=== PATIENT | female | born 1980 | race Asian ===

== ENCOUNTER 2023-02-13 08:50 | Outpatient (CLI) | payer BC ==
--- NOTE | 2023-02-14 12:13 | Mammography Report ---
BILATERAL FIRST EVER DIGITAL SCREENING MAMMOGRAM 3D/2D WITH EXAGGERATED CC LATEROMEDIAL OBLIQUE: 01/26 CLINICAL: Baseline exam. Routine screening. No prior exams were available for comparison. Both breasts are heterogeneously dense, which may obscure small masses (category c / 51-75% glandular tissue). No significant masses, calcifications, or other findings are seen in either breast. IMPRESSION: NEGATIVE There is no mammographic evidence of malignancy. A 1 year screening mammogram is recommended. Based on the Tyrer Cuzick model (a risk assessment model) the patients lifetime risk is 10.7% and he r 10 year risk is 1.5%. According to the ACR, ACS, and NCCN guidelines, an annual breast MRI exam shilpi ng with mammogram is recommended if the patients lifetime risk is 20% or greater. This exam was interpreted at Station ID: [id number]. NOTE: For mammograms, a report in lay terms will be sent to the patient. Approximately 15% of breast malignancies will not be visualized mammographically. In the management of a palpable breast mass, a negative mammogram must not discourage biopsy of a clinically suspicious lesion. Electronically Signed By: Matias ewing/massimo:02/13/2023 19:46:33 letter sent: No_Letter ACR BI-RADS Category 1: Negative 3341F PARENCHYMAL PATTERN: (D) - The breast(s) demonstrate(s) heterogeneously dense fibroglandular juan manuel lizama. BI-RADS CATEGORY: (1) - 1 Mammogram [id number] 1 year screening LATERALITY: (B)
== END 2023-02-13 08:51 | disposition home or self-care (01) ==
LOC: DI.S 08:50
DX: Z12.31 Encounter for screening mammogram for malignant neoplasm of breast (principal); R92.333 Mammographic heterogeneous density, bilateral breasts

== ENCOUNTER 2023-02-13 16:43 | Outpatient (CLI) | payer BC ==
--- NOTE | 2023-02-14 08:26 | Ultrasound Report ---
PROCEDURE: Pelvic w/Transvaginal INDICATIONS: MENORRHAGIA TECHNIQUE: Real-time scanning was performed of the pelvic organs, with image documentation. Additional endovagi nal scanning was necessary due to incomplete visualization of the adnexal and endometrial structures by transabdominal scanning. COMPARISON: None. FINDINGS: Uterus: Uterus is anteverted and normal in size at 10.1 x 5.1 x 6.1 cm. The myometrium is heterogen eous. The endometrium measures 8.9 mm in combined thickness. There is a midline anterior submucosal fibroid which measures 1.5 x 1.5 x 1.9 cm. Ovaries: The right ovary measures 2.2 x 1.4 x 1.9 cm, with a calculated ovarian volume of 3.1 cc. T he left ovary measures 3.1 x 2.6 x 3.0 cm, with a calculated ovarian volume of 12.3 cc. The ovaries have a normal sonographic appearance. Less than 12 follicles can be seen in each ovary. No adnexal masses are seen. No cystic lesions measuring greater than 3 cm. Other: No pathologic free abdominal or pelvic fluid. IMPRESSION: 1. Small submucosal fibroid. Otherwise unremarkable pelvic ultrasound. Reviewed by: Marga Stover MD on 02/14/2023 8:25 AM PST Approved by: Marga Stover MD on 02/14/2023 8:25 AM PST Station ID: [id number]
== END 2023-02-13 16:44 | disposition home or self-care (01) ==
LOC: DI 16:43
PROVIDERS: ATTEND Obstetrics & Gynecology
DX: N92.0 Excessive and frequent menstruation with regular cycle (principal); D25.0 Submucous leiomyoma of uterus
CPT/HCPCS: 36415; 83036; 84443; 85027

== ENCOUNTER 2023-02-13 17:37 | Outpatient (CLI) | payer BC ==
[2023-02-13 17:54] LABS: HCT - HEMATOCRIT 35.9 % (37.0-47.0); HGB - HEMOGLOBIN 11.8 g/dL (12.0-16.0); MEAN CORPUSCULAR HEMOGLOBIN 30.1 pg (27.0-31.0); MEAN CORPUSCULAR HGB CONC 32.9 g/dL (32.0-36.0); MEAN CORPUSCULAR VOLUME 91.6 fL (81.0-99.0); MEAN PLATELET VOLUME 9.1 fL (7.9-10.8); RED BLOOD COUNT 3.92 10^6/uL (4.20-5.40); RED CELL DISTRIBUTION WIDTH 12.8 % (12.0-15.0); WHITE BLOOD COUNT 5.5 x10^3/uL (4.8-10.8)
[2023-02-13 18:24] LABS: THYROID STIMULATING HORMONE 1.25 uIU/mL (0.34-5.60)
[2023-02-13 21:31] LABS: ESTIMATED AVERAGE GLUCOSE 103 mg/dL (70-100); HEMOGLOBIN A1c% 5.2 % (4.27-6.07)
== END 2023-02-13 17:38 | disposition home or self-care (01) ==
LOC: LAB 17:37
PROVIDERS: ATTEND Obstetrics & Gynecology
DX: N92.0 Excessive and frequent menstruation with regular cycle (principal)
CPT/HCPCS: 36415; 83036; 84443; 85027